=== PATIENT | male | born 1990 | race Caucasian/White ===

== ENCOUNTER 2025-02-23 06:04 | Inpatient (IN) | payer SELFPAY ==
[2025-02-23 06:04] VITALS: BP 154/98; PULSE 71; RESP 17; TEMP 36.9; O2SAT 100; BMI 28.8
--- NOTE | 2025-02-23 06:08 | ED.C_ITS ---
HPI - Psych 2 General: Chief Complaint: Psychiatric Symptoms Stated Complaint: multiple complaints Time Seen by Provider: 02/23/25 06:04 Source: patient and EMS Mode of arrival: EMS Limitations: no limitations History of Present Illness: 34-year-old male here with hallucination s along with paranoia. He states he has been seeing things he states that he feels like people were following him tonight in his car and trying to traffic him he was pulled over by police he also states that he believes that someone is trying to practice witchcraft on him and he is quite paranoid here denies SI or HI Associated symptoms: Reports auditory hallucinations and visual hallucinations Related Data Allergies Allergy/AdvReac Type Severity Reaction Status Date / Time No Known Allergies Allergy Verified 02/23/25 06:11 Review of Systems 2 Psych: Reports: visual hallucinations and auditory hallucinations Physical Exam 2 Const: COMMON NORMALS: no acute distress, patient oriented x3 and healthy appearing HENMT: COMMON NORMALS: normocephalic and atraumatic HEAD & SCALP: n ormocephalic and atraumatic Eye: COMMON NORMALS: conjunctivae normal CONJUNCTIVA: Yes conjunctivae normal Neck/C-Spine: COMMON NORMALS: full ROM and supple Chest: COMMONS NORMALS: normal inspection of the chest Resp: COMMON NORMALS: normal respiratory effort Cardio: COMMON NORMALS: regular rate, regular rhythm and No murmurs present (Cardio) RATE: regular rate RHYTHM: regular rhythm Extremity: COMMON NORMALS: normal to inspection and full ROM Neuro: COMMON NORMALS: patient oriented x3, moves all extremities and no focal motor deficits Psych: COMMON NORMALS: mental status grossly normal and cooperative THOUGHT CONTENT: Yes Hallucination(s) present Skin: COMMON NORMALS: no rashes or lesions noted and no wounds GENERAL SKIN EXAM: no rashes or lesions noted Course 2 Vital Signs: Vital signs: Vital Signs Temperature 98.5 F 02/23/25 06:04 Pulse Rate 71 02/23/25 06:04 Respiratory Rate 17 02/23/25 06:04 Blood Pressure 154/98 02/23/25 06:04 Pulse Oximetry 100 02/23/25 06:04 Oxygen Delivery Me thod Room Air 02/23/25 06:04 MDM - Psych Medical Decision Making Patient presents here with acute psychosis. Patient is hallucinating his vitals here are normal did review his lab work which all normal as well. He is medically cleared at this time I spoke to Dr. Hale psychiatrist and will admit to the CERTIFIED FIRST ASSISTANT you. Medical Records I reviewed the patient's medical records. Lab Data I reviewed the patient's lab results. 02/23/25 06:14 02/23/25 06:14 Laboratory Results WBC 9.05 10^3/uL (3.29-11.43) 02/23/25 06:14 RBC 5.36 10^6/uL (3.85-5.65) 02/23/25 06:14 Hgb 15.70 g/dL (11.27-16.99) 02/23/25 06:14 Hct 45.4 % (37-53) 02/23/25 06:14 MCV 84.7 fl (82-101) 02/23/25 06:14 MCH 29.3 pg (27-33) 02/23/25 06:14 MCHC 34.6 g/dL (30-55) 02/23/25 06:14 RDW 12.0 % (12.1-15.1) L 02/23/25 06:14 Plt Count 260 10^3/cmm (157-399) 02/23/25 06:14 MPV 8.8 fL (7.4-10.4) 02/23/25 06:14 Neut % (Auto) 62.9 % 02/23/25 06:14 Lymph % (Auto) 25.3 % 02/23/25 06:14 Carroll % (Auto) 11.0 % 02/23/25 06:14 Eos % (Auto) 0.3 % 02/23/25 06:14 Baso % (Auto) 0.3 % 02/23/25 06:14 Neut # (Auto) 5.68 10^3/uL (1.8-7.7) 02/23/25 06:14 Lymph # (Auto) 2.3 10^3/uL (0.8-4.8) 02/23/25 06:14 Carroll # (Auto) 1.0 10^3/uL (0.2-0.9) H 02/23/25 06:14 Eos # (Auto) 0.0 10^3/uL (0.0-0.8) 02/23/25 06:14 Baso # (Auto) 0.0 10^3/uL (0.0-0.1) 02/23/25 06:14 Nucleated RBC % (auto) 0 % 02/23/25 06:14 Nucleated RBCs # 0.0 /100WBC 02/23/25 06:14 Sodium 138 mmol/L (136-145) 02/23/25 06:14 Potassium 3.9 mmol/L (3.5-5.1) 02/23/25 06:14 Chloride 98 mmol/L (98-107) 02/23/25 06:14 Carbon Dioxide 28 mmol/L (22-29) 02/23/25 06:14 Anion Gap 15.9 (5-19) 02/23/25 06:14 BUN 14 mg/dL (6-20) 02/23/25 06:14 Creatinine 1.1 mg/dL (0.7-1.2) 02/23/25 06:14 GFR Calculation 76.2 mL/min (90-130) L 02/23/25 06:14 Glucose 96 mg/dL (65-115) 02/23/25 06:14 Calculated Osmolality 286 mOsm/kg (285-295) 02/23/25 06:14 Calcium 9.9 mg/dL (8.5-10.5) 02/23/25 06:14 Total Bilirubin 1.2 mg/dL (0.15-1.2) 02/23/25 06:14 AST 29 U/L (0-40) 02/23/25 06:14 ALT 39 U/L (0-41) 02/23/25 06:14 Alkaline Phosphatase 50 U/L (40-130) 02/23/25 06:14 Total Protein 7.0 g/dL (6.6-8.7) 02/23/25 06:14 Albumin 4.9 g/dL (3.5-5.2) 02/23/25 06:14 Globulin 2.1 g/dL (1.3-4.6) 02/23/25 06:14 Salicylates 1.3 mg/dL (3-10) L 02/23/25 06:14 Acetaminophen < 5.0 ug/mL (10-30) L 02/23/25 06:14 Ethyl Alcohol < 10 mg/dL (0-10) 02/23/25 06:14 No radiology studies performed this visit Discharge Plan Discharge Condition: Stable Print Language: German Coding Level of Care Code ED [employer] for [employer]
[2025-02-23 06:19] LABS: Hematocrit 45.4 % (37-53); Hemoglobin 15.70 g/dL (11.27-16.99); Mean Corpuscular HGB Conc 34.6 g/dL (30-55); Mean Corpuscular Hemoglobin 29.3 pg (27-33); Mean Corpuscular Volume 84.7 fl (82-101); Nucleated Red Blood Cells % 0 %; Platelet Count 260 10^3/cmm (157-399); Red Blood Count 5.36 10^6/uL (3.85-5.65); White Blood Count 9.05 10^3/uL (3.29-11.43)
[2025-02-23 06:35] LABS: Alanine Aminotransferase 39 U/L (0-41); Albumin Level 4.9 g/dL (3.5-5.2); Alkaline Phosphatase 50 U/L (40-130); Anion Gap 15.9 (5-19); Aspartate Amino Transferase 29 U/L (0-40); Blood Urea Nitrogen 14 mg/dL (6-20); Calcium 9.9 mg/dL (8.5-10.5); Carbon Dioxide 28 mmol/L (22-29); Chloride 98 mmol/L (98-107); Creatinine Clr Calc Pharmacy 103.1445; Globulin 2.1 g/dL (1.3-4.6); Glucose 96 mg/dL (65-115); Osmolality Calculated 286 mOsm/kg (285-295); Potassium 3.9 mmol/L (3.5-5.1); Salicylate 1.3 mg/dL (3-10); Sodium 138 mmol/L (136-145); Total Protein 7.0 g/dL (6.6-8.7)
[2025-02-23 06:41] LABS: Acetaminophen < 5.0 ug/mL (10-30); Alcohol Level < 10 mg/dL (0-10)
[2025-02-23 06:44] LABS: PCP Screen Urine Negative (Negative)
--- NOTE | 2025-02-23 06:49 | PC.NURSE ---
96 [facility] Copy of 96 [facility] served by this RN and Security. Pt A&Ox3 at beginning of conversation. Pt closed his eyes and stopped responding after being notified about 96 [facility].
[2025-02-23 07:39] VITALS: PULSE 98; O2SAT 99
--- NOTE | 2025-02-23 19:07 | P.NPUHP_ITS ---
Providers/Chief Complaint 2 Admitting Physician: Jefe Hale MD Chief Complaint: multiple complaints HPI NPU History of Present Illness Martín Jimenez is a 34 year old male who presented to the emergency department after he had been pulled over by police and allegedly stated that he was being followed in his car and stated that someone was trying to traffic him. Furthermore, the patient had indicated that someone was trying to practice witchcraft on him. Patient was admitted to the neuropsychiatric unit for further evaluation and treatment. The patient was extraordinarily paranoid and guarded and was unable to provide any information other than that he was from [facility] and was here to visit a cousin who lived in [place]. He had denied any significant substance use or alcohol use other than the use of marijuana on a regular basis. Inpatient psychiatric history: Denied Outpatient psychiatric history: Denied Substance abuse history: Denied other than marijuana use Medical history: Denied any active medical problems Allergies: No known drug allergies Family psychiatric history: Unknown Social history: Patient resides in [facility] but provided no further information. Medications: none reported Meds NPU Home Medications ?Medication ?Instructions ?Recorded ?Confirmed ?Last Taken ?Type No Known Home Medications 02/23/2501/29 Unknown History Allergies Allergy/AdvReac Type Severity Reaction Status Date / Time No Known Allergies Allergy Verified 02/23/25 06:11 Mental Status Exam 2 MSE Comments: Extremely guarded healthy male who appeared his stated age with limited eye contact with no evidence of any abnormal involuntary motor movements, tics, or tremors. There was significant psychomotor agitation that appeared to increase with each additional question asked. His speech was monotone in quality with significant stammering appreciated and significant halting noted with normal volume. His mood was described as fine. His affect was mood incongruent and subdued. He did appear to be responding to internal stimuli. His thought content was notable for a general poverty of content. His thought process was nonlinear. He did not endorse thoughts of hurting himself or others. There was significant paranoia although there was no clear overt delusions endorsed. He was alert and oriented to person only. He did not answer regarding his date month year or place. His insight appeared impaired. His judgment was poor. His impulse control appeared limited. Vitals/I&O/Wt Last Vital Signs Temp 98.5 F 02/23/25 06:04 Pulse 98 02/23/25 07:39 Resp 17 02/23/25 06:04 BP 154/98 02/23/25 06:04 Pulse Ox 99 02/23/25 07:39 O2 Del Method Room Air 02/23/25 07:42 Weight last 48 hrs Weight 88.451 kg Data NPU 02/23/25 06:14 02/23/25 06:14 A&P Assessment and plan 1. Unspecified psychosis: Plan: 34-year-old male admitted with psychosis and clear paranoia currently providing no further history. #1.? Engage patient in individual milieu and group therapy. #2?? Recommend sober living treatment at the highest level of care to which the patient is willing to commit #3??? zyprexa 5mg at night prn agitation. ? #4?? TO-15 minute checks? #5?? Will attempt to gather collateral information PDMP PDMP Reviewed: Not Reviewed Involuntary Hold Information 2 Hold Status: Legal Status: 96 Hour Hold Date/Time Hold Expires: 02/27/25 @0604 Attestations NPU 2 Medical Necessity Statement*: Inpatient hospitalization is medically necessary and deemed to be the clinically appropriate intervention at this time. The patient will be admitted with adjustment or initiation of medications.? The patient will be hospitalized for at least two midnights.? The patient?s likely length of stay is 5-7 days. Coding Level of Care Code Acute Code for Chg Fwd Diagnoses Unspecified psychosis F29
[2025-02-23 21:06] VITALS: BP 151/93; PULSE 76; RESP 16; TEMP 36.4; O2SAT 100
[2025-02-24 06:00] VITALS: BP 155/90; PULSE 105; RESP 18; TEMP 36.6; O2SAT 100
--- NOTE | 2025-02-24 13:38 | P.NPUPN_ITS ---
Subjective NPU 2 Subjective: The patient reported that his mind was kind of foggy . He was able to provide additional information as he stated that he was single and had no children. 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 He had acknowledged that he had been paranoid and convinced that someone was trying to use witchcraft against him 2 years ago when he had decided to quit his job. He had reported that he was unemployed since that time. He reported that he still felt confused. He stated that he did feel like someone had put him under a spell of black magic and stated that he was driving towards [place] to escape these people that were influencing them. He states that when he was stopped by the police he decided to tell them of what was going on. He had reported that he had been having problems with his memory. He had stated that he had been preoccupied with various thoughts and has had. He had stated that he felt that his thoughts were jumbled . He reported that he was staying with his parents currently as far as he remembers. Mental Status Exam 2 MSE Comments: Guarded healthy male who appeared his stated age with limited eye contact with no evidence of any abnormal involuntary motor movements, tics, or tremors. There was significant psychomotor agitation and shaking that appeared to increase with each additional question asked. His speech was monotone in quality with significant stammering appreciated and significant halting noted with normal volume. His mood was described as okay. His affect was mood incongruent and subdued. He did appear to be responding to internal stimuli. His thought content was notable for a general poverty of content. His thought process was nonlinear. He did not endorse thoughts of hurting himself or others. There was significant paranoia although there was some evidence of delusions of being controlled. He was alert and oriented to person only. He was oriented to month, year but not date or day of the week. His insight appeared impaired. His judgment was poor. His impulse control appeared limited. Vitals/I&O/Wt Last Vital Signs Temp 97.9 F 02/24/25 06:00 Pulse 105 H 02/24/25 06:00 Resp 18 02/24/25 06:00 BP 155/90 02/24/25 06:00 Pulse Ox 100 02/24/25 06:00 O2 Del Method Room Air 02/24/25 06:00 Weight last 48 hrs Weight 88.451 kg Data NPU 02/23/25 06:14 02/23/25 06:14 A&P Assessment and plan 1. Unspecified psychosis: Plan: 34-year-old male admitted with psychosis and clear paranoia currently providing no further history. #1.? Engage patient in individual milieu and group therapy. #2?? Recommend sober living treatment at the highest level of care to which the patient is willing to commit #3??? Increase zyprexa to 7.5mg at night prn agitation. ? #4?? TO-15 minute checks? #5?? Will attempt to gather collateral information PDMP PDMP Reviewed: Not Reviewed Involuntary Hold Information 2 Hold Status: Legal Status: 96 Hour Hold Date/Time Hold Expires: 02/27/25 @0604 Attestations NPU 2 Medical Necessity Statement*: Inpatient hospitalization is medically necessary and deemed to be the clinically appropriate intervention at this time. The patient will be admitted with adjustment or initiation of medications.? The patient?s likely length of stay is 5-7 days. Coding Level of Care Code Acute Code for Chg Fwd Diagnoses Unspecified psychosis F29
[2025-02-24 14:00] VITALS: BP 140/87; PULSE 86; RESP 16; TEMP 36.7; O2SAT 97
[2025-02-24 19:54] VITALS: BP 133/95; PULSE 93; RESP 18; TEMP 36.7; O2SAT 98
[2025-02-25 06:00] VITALS: BP 140/89; PULSE 62; RESP 18; TEMP 36.4; O2SAT 97
--- NOTE | 2025-02-25 12:52 | P.NPUPN_ITS ---
Subjective NPU 2 Subjective: 34-year-old male admitted with paranoia who had endorsed having psychotic symptoms for several years. He had reported that he feeling better today. He had continued to report that he had questions as to whether his biological father was really his father or was an impostor. He had stated that his mother was probably his biological mother. He had reported that he had felt that he had been a victim of witchcraft and stated that he had a hard time with keeping his job 2 years ago due to his paranoia. He had stated that he felt like these beliefs may have been a delusion. He was redirectable but somewhat isolative on the unit. He had no acts of aggression. He had reported improved sleep with the Zyprexa at night. The patient had reported that he had tried meditation to help him with managing his thoughts and stated that he had been hopeful that he would be able to quiet his mind with meditation but stated it was unsuccessful. Mental Status Exam 2 MSE Comments: He was a healthy male who appeared his stated age with limited eye contact with no evidence of any abnormal involuntary motor movements, tics, or tremors. There was a reduction in psychomotor agitation today with no abnormal shaking appreciated. His speech was monotone in quality with significant stammering appreciated and significant halting noted with normal volume. His mood was described as a little better. His affect was mood incongruent and subdued. He did not appear to be responding to internal stimuli this morning. His thought content revealed no suicidal or homicidal ideation. His thought process was linear logical and more goal-directed today. He did not endorse thoughts of hurting himself or others. There was significant paranoia although there was some evidence of delusions of being controlled along with family members reportedly replaced by imposters. He was alert and oriented to person only. He was oriented to month, year but not date or day of the week. His insight appeared impaired. His judgment was poor. His impulse control appeared limited. Vitals/I&O/Wt Last Vital Signs Temp 97.6 F 02/25/25 06:00 Pulse 62 02/25/25 06:00 Resp 18 02/25/25 06:00 BP 140/89 02/25/25 06:00 Pulse Ox 97 02/25/25 06:00 O2 Del Method Room Air 02/25/25 06:00 Data NPU 02/23/25 06:14 02/23/25 06:14 A&P Assessment and plan 1. Unspecified psychosis: Plan: 34-year-old male admitted with psychosis and clear paranoia currently providing no further history. #1.? Engage patient in individual milieu and group therapy. #2?? Recommend sober living treatment at the highest level of care to which the patient is willing to commit #3??? Increase zyprexa to 10mg at night. ? #4?? TO-15 minute checks? #5?? Will attempt to gather collateral information PDMP PDMP Reviewed: Not Reviewed Involuntary Hold Information 2 Hold Status: Legal Status: 96 Hour Hold Date/Time Hold Expires: 02-26-25 0604 Attestations NPU 2 Medical Necessity Statement*: Inpatient hospitalization is medically necessary and deemed to be the clinically appropriate intervention at this time. The patient will be admitted with adjustment or initiation of medications.? The patient?s likely length of stay is 5-7 days. Coding Level of Care Code Acute Code for Chg Fwd Diagnoses Unspecified psychosis F29
[2025-02-25 14:00] VITALS: BP 145/96; PULSE 81; RESP 17; TEMP 36.7; O2SAT 100
[2025-02-25 20:03] VITALS: BP 144/96; PULSE 80; RESP 18; TEMP 36.4; O2SAT 95
[2025-02-26 06:00] VITALS: BP 132/87; PULSE 65; RESP 16; TEMP 36.5; O2SAT 97
--- NOTE | 2025-02-26 12:31 | P.NPUPN_ITS ---
Subjective NPU 2 Subjective: 34-year-old male admitted with paranoia who had endorsed having psychotic symptoms. The patient had reported that he had felt that he had been in a state of being delusional for more than 2 years. He states that he was coming out of his fog today. He continued to report questions at end concerns about whether his biological parents were really his biological parents. He had been less isolative and more interactive with others including peers. He had continued to report that he had been very concerned about being a victim of witchcraft and this had led him to be unable to work. He had stated avoidance of mental health help out of fear of being committed into a psychiatric facility. He denied any depression currently at this time. He had not clearly endorsed any hola at any time in his life. He had reported improved sleep. Mental Status Exam 2 MSE Comments: He was a healthy male who appeared his stated age with limited eye contact with no evidence of any abnormal involuntary motor movements, tics, or tremors. There was no evidence of psychomotor agitation or psychomotor retardation. His speech was monotone in quality with no stammering appreciated and normal volume. His mood was described as better. His affect was blunted. He did not appear to be responding to internal stimuli this morning. His thought content revealed no suicidal or homicidal ideation. His thought process was linear logical and more goal-directed today. He did not endorse thoughts of hurting himself or others. There was less prominent focus on his delusions. He was alert and oriented x3. His insight appeared to be improving. His judgment was poor. His impulse control appeared better. Vitals/I&O/Wt Last Vital Signs Temp 97.7 F 02/26/25 06:00 Pulse 65 02/26/25 06:00 Resp 16 02/26/25 06:00 BP 132/87 02/26/25 06:00 Pulse Ox 97 02/26/25 06:00 O2 Del Method Room Air 02/26/25 06:00 Data NPU 02/23/25 06:14 02/23/25 06:14 A&P Assessment and plan 1. Unspecified psychosis: Plan: 34-year-old male admitted with psychosis and clear paranoia currently providing no further history. #1.? Engage patient in individual milieu and group therapy. #2?? Recommend sober living treatment at the highest level of care to which the patient is willing to commit #3??? Continue zyprexa at 10mg at night with improvement appreciated. ? #4?? TO-15 minute checks? #5?? Will attempt to gather collateral information. 21 day hold filed. PDMP PDMP Reviewed: Not Reviewed Involuntary Hold Information 2 Hold Status: Legal Status: 96 Hour Hold Date/Time Hold Expires: 02-26-25 0604 Attestations NPU 2 Medical Necessity Statement*: Inpatient hospitalization is medically necessary and deemed to be the clinically appropriate intervention at this time. The patient will be admitted with adjustment or initiation of medications.? The patient?s likely length of stay is 2-3 days. Coding Level of Care Code Acute Code for Chg Fwd Diagnoses Unspecified psychosis F29
--- NOTE | 2025-02-26 12:46 | PC.NURSE ---
Pt was served 21 day paperwork by the [facility]'s deputies, Security was present on the unit.
[2025-02-26 14:00] VITALS: BP 138/98; PULSE 84; RESP 16; TEMP 36.3; O2SAT 100
[2025-02-26 21:45] VITALS: BP 155/104; PULSE 90; RESP 19; TEMP 36.6; O2SAT 96
[2025-02-27 06:00] VITALS: BP 126/85; PULSE 74; RESP 16; TEMP 36.4; O2SAT 96
[2025-02-27 14:00] VITALS: BP 129/86; PULSE 80; RESP 18; TEMP 36.4; O2SAT 100
--- NOTE | 2025-02-27 14:23 | P.NPUPN_ITS ---
Subjective NPU 2 Subjective: Patient presented today reporting that he is doing all right. He is going to his 21-day hold hearing shortly and was reporting that he felt like he was doing better so he was confused by the 21-day hold notification. I explained to him the process and how the 96-hour hold 21-day hold transition works. We discussed the no more than 21-day aspect of of the 21-day hold process. We discussed the fact that Dr. Banks did report improvement and identified that there were just needed to be some additional time to stabilize the situation. He endorsed feeling he was getting better with the medication and agree that maybe there was a little more time needed for him to be at a point that might be considered appropriate for discharge and that his paranoia and psychotic symptoms are reducing. He denied any side effects to the medication. Mental Status Exam 2 MSE Comments: He was a healthy male who appeared his stated age with limited eye contact with no evidence of any abnormal involuntary motor movements, tics, or tremors. There was no evidence of psychomotor agitation or psychomotor retardation. His speech was monotone in quality with no stammering appreciated and normal volume. His mood was described as better. His affect was blunted. He did not appear to be responding to internal stimuli this morning. His thought content revealed no suicidal or homicidal ideation. His thought process was linear logical and more goal-directed today. He did not endorse thoughts of hurting himself or others. There was less prominent focus on his delusions. He was alert and oriented x3. His insight appeared to be improving. His judgment was poor. His impulse control appeared better. Vitals/I&O/Wt Last Vital Signs Temp 97.5 F L 02/27/25 06:00 Pulse 74 02/27/25 06:00 Resp 16 02/27/25 06:00 BP 126/85 02/27/25 06:00 Pulse Ox 96 02/27/25 06:00 O2 Del Method Room Air 02/27/25 06:00 Data NPU 02/23/25 06:14 02/23/25 06:14 A&P Assessment and plan 1. Unspecified psychosis: Plan: 34-year-old male admitted with psychosis and clear paranoia currently providing no further history. 1.? Continue current medication. 2. Encourage individual, group and milieu therapy. 3. Continue every 15 minute checks for safety. 4. Recommend sober living treatment at the highest level of care to which the patient is willing to commit. 5. Obtain collateral information. 6. 21-day hold hearing today at 3 PM. PDMP PDMP Reviewed: Not Reviewed Involuntary Hold Information 2 Hold Status: Legal Status: 96 Hour Hold Date/Time Hold Expires: 02-27-25 0604 Attestations NPU 2 Medical Necessity Statement*: Inpatient hospitalization is medically necessary and the clinically appropriate intervention at this time. We will monitor/initiate medications and make changes as indicated. The patient?s likely length of stay is 3-4 days. Coding Level of Care Code Acute Code for Chg Fwd Diagnoses Unspecified psychosis F29
[2025-02-27 20:28] VITALS: BP 132/90; PULSE 86; RESP 18; TEMP 36.4; O2SAT 98
[2025-02-28 06:00] VITALS: BP 140/92; PULSE 67; RESP 16; TEMP 36.6; O2SAT 100
[2025-02-28 14:15] VITALS: BP 119/83; PULSE 72; RESP 18; TEMP 36.9; O2SAT 98
--- NOTE | 2025-02-28 15:34 | P.NPUPN_ITS ---
Subjective NPU 2 Subjective: Patient presented today reporting that he is feeling better. He continues to endorse having more confidence in his thought process. He talked about returning to his parents place and hopefully having continued improvement as he stays on the medication. Otherwise he denied any side effects to his medication. Mental Status Exam 2 MSE Comments: He was a healthy male who appeared his stated age with limited eye contact with no evidence of any abnormal involuntary motor movements, tics, or tremors. There was no evidence of psychomotor agitation or psychomotor retardation. His speech was monotone in quality with no stammering appreciated and normal volume. His mood was described as better. His affect was blunted. He did not appear to be responding to internal stimuli this morning. His thought content revealed no suicidal or homicidal ideation. His thought process was linear logical and more goal-directed today. He did not endorse thoughts of hurting himself or others. There was less prominent focus on his delusions. He was alert and oriented x3. His insight appeared to be improving. His judgment was poor. His impulse control appeared better. Vitals/I&O/Wt Last Vital Signs Temp 98.5 F 02/28/25 14:15 Pulse 72 02/28/25 14:15 Resp 18 02/28/25 14:15 BP 119/83 02/28/25 14:15 Pulse Ox 98 02/28/25 14:15 O2 Del Method Room Air 02/28/25 06:00 Data NPU 02/23/25 06:14 02/23/25 06:14 A&P Assessment and plan 1. Unspecified psychosis: Plan: 34-year-old male admitted with psychosis and clear paranoia currently providing no further history. 1.? Continue current medication. 2. Encourage individual, group and milieu therapy. 3. Continue every 15 minute checks for safety. 4. Recommend sober living treatment at the highest level of care to which the patient is willing to commit. 5. Obtain collateral information. 6. 21-day hold hearing yesterday. Patient on 21-day hold. PDMP PDMP Reviewed: Not Reviewed Involuntary Hold Information 2 Hold Status: Legal Status: 96 Hour Hold Date/Time Hold Expires: 02-27-25 0604 Attestations NPU 2 Medical Necessity Statement*: Inpatient hospitalization is medically necessary and the clinically appropriate intervention at this time. We will monitor/initiate medications and make changes as indicated. The patient?s likely length of stay is 3-4 days. Coding Level of Care Code Acute Code for Chg Fwd Diagnoses Unspecified psychosis F29
[2025-02-28 20:16] VITALS: BP 137/87; PULSE 73; RESP 16; TEMP 36.3; O2SAT 100
[2025-03-01 06:00] VITALS: BP 129/86; PULSE 58; RESP 16; TEMP 36.4; O2SAT 97
[2025-03-01 14:00] VITALS: BP 130/78; PULSE 73; RESP 15; O2SAT 100
--- NOTE | 2025-03-01 17:22 | P.NPUPN_ITS ---
Subjective NPU 2 Subjective: Patient presented today reporting that he is doing fine. He is endorsing having improvement in his thinking and how he feels on a daily basis. We discussed a plan to contact some of his home supports particularly his parents to identify where they feel he is as compared to baseline. We discussed that if they were in agreement that he was at a proximity to baseline that we would discharge in the next few days based on that information and getting his follow-up and resources in place. He denied any side effects to his medication. Mental Status Exam 2 MSE Comments: He was a healthy male who appeared his stated age with limited eye contact with no evidence of any abnormal involuntary motor movements, tics, or tremors. There was no evidence of psychomotor agitation or psychomotor retardation. His speech was monotone in quality with no stammering appreciated and normal volume. His mood was described as better. His affect was less blunted. He did not appear to be responding to internal stimuli this morning. His thought content revealed no suicidal or homicidal ideation. His thought process was linear logical and more goal-directed today. He did not endorse thoughts of hurting himself or others. There was less prominent focus on his delusions. He was alert and oriented x3. His insight appeared to be improving. His judgment was poor. His impulse control appeared better. Vitals/I&O/Wt Last Vital Signs Temp 97.4 F L 03/01/25 20:30 Pulse 83 03/01/25 20:30 Resp 18 03/01/25 20:30 BP 135/93 03/01/25 20:30 Pulse Ox 98 03/01/25 20:30 O2 Del Method Room Air 03/01/25 20:30 Weight last 48 hrs Weight 86.455 kg Data NPU 02/23/25 06:14 02/23/25 06:14 A&P Assessment and plan 1. Unspecified psychosis: Plan: 34-year-old male admitted with psychosis and clear paranoia currently providing no further history. 1.? Continue current medication. 2. Encourage individual, group and milieu therapy. 3. Continue every 15 minute checks for safety. 4. Recommend sober living treatment at the highest level of care to which the patient is willing to commit. 5. Obtain collateral information. 6. 21-day hold hearing yesterday. Patient on 21-day hold. PDMP PDMP Reviewed: Not Reviewed Involuntary Hold Information 2 Hold Status: Legal Status: 96 Hour Hold Date/Time Hold Expires: 02-27-25 0604 Attestations NPU 2 Medical Necessity Statement*: Inpatient hospitalization is medically necessary and the clinically appropriate intervention at this time. We will monitor/initiate medications and make changes as indicated. The patient?s likely length of stay is 1-3 days. Coding Level of Care Code Acute Code for Chg Fwd Diagnoses Unspecified psychosis F29
[2025-03-01 20:30] VITALS: BP 135/93; PULSE 83; RESP 18; TEMP 36.3; O2SAT 98
[2025-03-02 06:00] VITALS: BP 124/82; PULSE 71; RESP 17; TEMP 36.5; O2SAT 99
--- NOTE | 2025-03-02 12:30 | P.NPUPN_ITS ---
Subjective NPU 2 Subjective: Patient presented today reporting that he is doing okay. He reports that he is feeling optimistic about the prospect of leaving soon and feeling that he is ready to face to the challenges. Treatment team had an opportunity to touch base with parents who met with him today on the phone and his mother in person and they report him being close to baseline and they feel happy and excited to take him home. They are thankful for the work and his improvements during his stay. We discussed importance of him continuing his medication. He endorsed a plan to follow through with all outpatient appointments, medications and working to avoid repeating this situation. He denied any side effects to his medication. We discussed plan for discharge in the morning. Mental Status Exam 2 MSE Comments: This is an overweight white male in hospital scrubs with adequate grooming and limited but improving eye contact. No abnormal movements except for mild psychomotor retardation. Cooperative with exam and in mild distress. Speech was slightly decreased rate and volume. Mood described as getting better, affect congruent and still somewhat robotic/subdued/blunted but improving. Thought content: Suicidal or homicidal ideation, there are no delusions reported but acknowledgment of past delusions and active focus on identifying and disputing them. No reports of any hallucinations. He is alert and oriented x 3. Insight and judgment improving, his pulse control limited but improving. Vitals/I&O/Wt Last Vital Signs Temp 97.7 F 03/02/25 06:00 Pulse 71 03/02/25 06:00 Resp 17 03/02/25 06:00 BP 124/82 03/02/25 06:00 Pulse Ox 99 03/02/25 06:00 O2 Del Method Room Air 03/02/25 06:00 Weight last 48 hrs Weight 86.455 kg Data NPU 02/23/25 06:14 02/23/25 06:14 A&P Assessment and plan 1. Unspecified psychosis: Plan: 34-year-old male admitted with psychosis and clear paranoia currently providing no further history. 1.? Continue current medication. 2. Encourage individual, group and milieu therapy. 3. Continue every 15 minute checks for safety. 4. Recommend sober living treatment at the highest level of care to which the patient is willing to commit. 5. Obtain collateral information. There is endorses of being closer to baseline. 6. 21-day hold hearing yesterday. Patient on 21-day hold. PDMP PDMP Reviewed: Not Reviewed Involuntary Hold Information 2 Hold Status: Legal Status: 96 Hour Hold Date/Time Hold Expires: 02-27-25 0604 Attestations NPU 2 Medical Necessity Statement*: Inpatient hospitalization is medically necessary and the clinically appropriate intervention at this time. We will monitor/initiate medications and make changes as indicated. The patient?s likely length of stay is 1 day. Coding Level of Care Code Acute Code for Chg Fwd Diagnoses Unspecified psychosis F29
[2025-03-02 13:03] VITALS: BP 131/89; PULSE 86; RESP 16; TEMP 36.4; O2SAT 100
[2025-03-02 20:02] VITALS: BP 123/81; PULSE 86; RESP 17; TEMP 36.6; O2SAT 99
[2025-03-03 06:00] VITALS: BP 128/88; PULSE 73; RESP 17; TEMP 36.3; O2SAT 96
--- NOTE | 2025-03-03 08:49 | W.PM.NPUDCS ---
Diagnoses at Discharge Discharge Diagnosis 1. Unspecified psychosis: Reason for Visit Reason for Visit: multiple complaints Involuntary Hold Information Hold Status: Legal Status: 96 Hour Hold Date/Time Hold Expires: 02-27-25603 Mental Status Exam MSE Comments: This is an overweight white male in hospital scrubs with adequate grooming and limited but improving eye contact. No abnormal movements except for mild psychomotor retardation. Cooperative with exam and in mild distress. Speech was slightly decreased rate and volume. Mood described as getting better, affect congruent and still somewhat robotic/subdued/blunted but improving. Thought content: Suicidal or homicidal ideation, there are no delusions reported but acknowledgment of past delusions and active focus on identifying and disputing them. No reports of any hallucinations. He is alert and oriented x 3. Insight and judgment improving, his pulse control limited but improving. Discharge Data Studies Completed and Pending: Laboratory Results WBC 9.05 10^3/uL (3.2 9-11.43) 02/23/25 06:14 RBC 5.36 10^6/uL (3.8 5-5.65) 02/23/25 06:14 Hgb 15.70 g/dL (11.27 -16.99) 02/23/25 06:14 Hct 45.4 % (37-53) 02/23/25 06:14 MCV 84.7 fl (82-101) 02/23/25 06:14 MCH 29.3 pg (27-33) 02/23/25 06:14 MCHC 34.6 g/dL (30-55) 02/23/25 06:14 RDW 12.0 % (12.1-15.1 ) L 02/23/25 06:14 Plt Count 260 10^3/cmm (157 -399) 02/23/25 06:14 MPV 8.8 fL (7.4-10.4) 02/23/25 06:14 Neut % (Auto) 62.9 % 02/23/25 06:14 Lymph % (Auto) 25.3 % 02/23/25 06:14 [place] % (Auto) 11.0 % 02/23/25 06:14 Eos % (Auto) 0.3 % 02/23/25 06:14 Baso % (Auto) 0.3 % 02/23/25 06:14 Neut # (Auto) 5.68 10^3/uL (1.8 -7.7) 02/23/25 06:14 Lymph # (Auto) 2.3 10^3/uL (0.8- 4.8) 02/23/25 06:14 [place] # (Auto) 1.0 10^3/uL (0.2- 0.9) H 02/23/25 06:14 Eos # (Auto) 0.0 10^3/uL (0.0- 0.8) 02/23/25 06:14 Baso # (Auto) 0.0 10^3/uL (0.0- 0.1) 02/23/25 06:14 Nucleated RBC % (a uto) 0 % 02/23/25 06:14 Nucleated RBCs # 0.0 /100WBC 02/23/25 06:14 Sodium 138 mmol/L (136-1 45) 02/23/25 06:14 Potassium 3.9 mmol/L (3.5-5 .1) 02/23/25 06:14 Chloride 98 mmol/L (98-107 ) 02/23/25 06:14 Carbon Dioxide 28 mmol/L (22-29) 02/23/25 06:14 Anion Gap 15.9 (5-19) 02/23/25 06:14 BUN 14 mg/dL (6-20) 02/23/25 06:14 Creatinine 1.1 mg/dL (0.7-1. 2) 02/23/25 06:14 GFR Calculation 76.2 mL/min (90-1 30) L 02/23/25 06:14 Glucose 96 mg/dL (65-115) 02/23/25 06:14 Calculated Osmolal ity 286 mOsm/kg (285- 295) 02/23/25 06:14 Calcium 9.9 mg/dL (8.5-10 .5) 02/23/25 06:14 Total Bilirubin 1.2 mg/dL (0.15-1 .2) 02/23/25 06:14 AST 29 U/L (0-40) 02/23/25 06:14 ALT 39 U/L (0-41) 02/23/25 06:14 Alkaline Phosphata se 50 U/L (40-130) 02/23/25 06:14 Total Protein 7.0 g/dL (6.6-8.7 ) 02/23/25 06:14 Albumin 4.9 g/dL (3.5-5.2 ) 02/23/25 06:14 Globulin 2.1 g/dL (1.3-4.6 ) 02/23/25 06:14 Salicylates 1.3 mg/dL (3-10) L 02/23/25 06:14 Urine Opiates Scre en Negative ng/mL (N egative) 02/23/25 06:19 Acetaminophen < 5.0 ug/mL (10-3 0) L 02/23/25 06:14 Ur Barbiturates Sc reen Negative ng/mL (N egative) 02/23/25 06:19 Ur Phencyclidine S crn Negative ng/mL (N egative) 02/23/25 06:19 Ur Amphetamines Sc reen Negative ng/mL (N egative) 02/23/25 06:19 U Benzodiazepines Scrn Negative ng/mL (N egative) 02/23/25 06:19 Urine Cocaine Scre en Negative ng/mL (N egative) 02/23/25 06:19 U Marijuana (THC) Screen Positive ng/mL (N egative) H 02/23/25 06:19 Ethyl Alcohol < 10 mg/dL (0-10) 02/23/25 06:14 Vitals: Last Vital Signs Temp 97.4 F L 03/03/25 06:00 Pulse 73 03/03/25 06:00 Resp 17 03/03/25 06:00 BP 128/88 03/03/25 06:00 Pulse Ox 96 03/03/25 06:00 O2 Del Method Room Air 03/03/25 06:00 Discharge Plan Discharge Patient Disposition: Home Condition: Stable Prescriptions: New olanzapine 10 mg tablet 10 mg PO BEDTIME 30 Days Qty: 30 1RF Discharge Order = DC NOW: Discharge Order (Routine); Ordered 03/03/25 Ordered By: Jefe Hale Discharge Diet: Regular Discharge Activity: Resume usual activity Patient Instructions: Opioid Safety, Patient Portal & [facility] Instructions Discharge Attestations NPU Time Spent in Discharge Care*: less than 30 min Specific Discharge Activities: Specific discharge activities: educating patient, discussing with rehabilitation caseworker/social workers/dc planners, documenting/other paperwork and evaluating patient/reviewing data Coding Level of Care Code Acute Code for Chg Fwd Diagnoses Unspecified psychosis F29
[2025-03-03 14:00] VITALS: BP 144/91; PULSE 86; RESP 16; TEMP 36.3; O2SAT 100
[2025-03-03 15:26] VITALS: BP 144/91; PULSE 86; RESP 16; TEMP 36.3; O2SAT 100
== END 2025-03-03 15:41 | disposition home or self-care (01) | DRG 885 ==
LOC: ER 06:50 → NP 07:35
PROVIDERS: Admitting Provider Psychiatry & Neurology Psychiatry; Emergency Provider Emergency Medicine; Visit Provider Psychiatry & Neurology Psychiatry
DX: F23 Brief psychotic disorder (principal); E66.3 Overweight; Z68.28 Body mass index [BMI] 28.0-28.9, adult
CPT/HCPCS: 36415; 80053; 80306; 80307; 85025; 97150; 97165; 99285; J9999